=== PATIENT | female | born 1995 | race Caucasian/White ===

== ENCOUNTER 2019-03-20 03:55 | Observation (INO) ==
[2019-03-20] MEDS ORDERED: Ringers Solution, Lactated 1,000 ML ONE (04:14)
--- NOTE | 2019-03-20 06:59 | OB/GYN Progress Note ---
Date of Encounter: 03/20/19 Time of Encounter: 06:56 - Assessment and Plan (1) 37 weeks gestation of Current Visit: Yes Status: Acute Reactive NST No change with serial vaginal exams Discharge home with labor precautions Follow up in office and PRN POC per consult with Dr Beatty (2) NST (non-stress test) reactive Current Visit: Yes Status: Acute Subjective - Subjective Principal diagnosis: Labor Evaluation Interval history: Ms Dasilva is a at 37 weeks and 4 days that presents to triage with c/o contractions every 10 minutes and a lot of vaginal pressure after having intercourse this evening. She states they began at midnight last night. She has had a normal course and has been seen by the midwives. She states positive movement. She denies headaches, vision changes, epigastric pain, leaking of fluid, and vaginal bleeding. Antepartum ROS: movement normal, contractions Objective - Vital Signs Vital Signs: Intake and Output 03/19/19 03/19/19 03/20/19 15:59 23:59 07:59 Other: Weight 82.2 kg Patient Weight 03/20/19 23:59 Weight 82.2 kg - Exam FHR: auscultation normal, category 1 FHR comments: 130 baseline moderate variability with >15 x 15 accels and no decels No contractions at the time of discharge per toco, palpation, or patient report Auscultation: bilateral: normal Abdomen: Present: normal appearance, soft, gravid Uterus: Present: normal. Absent: firm Cervical dilation: 5-6 Cervix effacement: 80 station: 0
== END 2019-03-20 06:55 | disposition home or self-care (01) ==
LOC: 1NENULAB
PROVIDERS: ADMIT Advanced Practice Midwife; ATTEND Advanced Practice Midwife

== ENCOUNTER 2019-03-22 20:19 | Inpatient (IN) ==
[~2019-03-22 20:19] MED LIST: *HR* Nalbuphine 10 MG/ML AMPUL IVP PRN; Famotidine 20 MG/2 ML VIAL IVP PRN; Metoclopramide 10 MG/2 ML VIAL IVP PRN; Naloxone 0.4 MG/ML INJ IVP PRN; Ondansetron 4 MG/2 ML VIAL IVP PRN
[2019-03-22] MEDS ORDERED: Ringers Solution, Lactated 1,000 ML IVC SCH (20:30)
[2019-03-22 20:50] LABS: Basophils % 0.3 %; Eosinophils # 0.1 K/mcL (0.0-0.6); Hematocrit 36.9 % (35.3-44.9); Hemoglobin 12.7 g/dL (11.5-15.4); Immature Granulocytes % 0.9 % (0-4); Lymphocytes # 1.5 K/mcL (0.6-4.6); Mean Corpuscular HGB Conc 34.4 g/dL (31.6-35.5); Mean Corpuscular Hemoglobin 29.2 pg (28.0-33.3); Mean Corpuscular Volume 84.8 fL (83.0-100.0); Mean Platelet Volume 12.1 fL (9.4-12.4); Monocytes # 0.4 K/mcL (0.0-1.3); Monocytes % 5.7 %; Neutrophils # 4.9 K/mcL (1.6-8.9); Platelet Count 158 K/mcL (140-400); Red Blood Count 4.35 M/mcL (3.82-4.97); Red Cell Distribution Width 12.7 % (11.5-14.5); Segmented Neutrophils % 70.1 %
--- NOTE | 2019-03-22 20:57 | OB/GYN History & Physical ---
Date of Encounter: 03/22/19 Time of Encounter: 20:53 Assessment and Plan (1) 37 weeks gestation of Current visit: Yes Status: Acute Admit for spontaneous labor, 6 cm on arrival. NST Reactive augment labor as needed intermittent monitoring pain medication prn Anticipate (2) NST (non-stress test) reactive Current visit: Yes Status: Acute FHR 140 BPM, moderate variable +15x15 accels, no decels. category one tracing History of Present Illness Chief complaint: Labor HPI: Ms. Dasilva is a 23 year old female at 37,6 presenting with increased pelvic pressure [facility] She denies fluid gush, bloody show (did have some at 36 weeks and on 03/20) denies contractions (did have some on 03/20). She endorses movement. She denies UTI/STI during , denies tobacco, alcohol, or illicit drugs during the . She denies PreE and GestDia. GBS- Rubella Immune Hep B Non Reactive O+ Past Med Surg Social Fam HX - Past Medical History Attestation: Yes The following information was validated with the patient. Medical history: no medical history Psychiatric history: no psych history - Past Surgical History Surgical History: no surgical history - Social History Smoking Status: Never smoker Smokeless Tobacco Status: No Alcohol use: none Drug use: none - Family History Mother Family Member Ethnicity: Non- Living Status: Still Living Hx Family Cardiac Disorders: No Hx Family Respiratory Disorders: No Hx Family Cancer: No Hx Family GI Disorders: No Hx Family Endocrine Disorder: No Hx Family Neuromuscular Disorders: No Hx Family Neurologic Disorders: No Hx Family HEENT Disorders: No Hx Family Autoimmune Disorders: No Hx Family Reproductive Disorders: No Hx Family Psychosocial Disorders: No Hx Family Medical Disorders: No Obstetrical History - Pregnancies : 2 Para: 1 Term: 1 : 0 Ab's: 0 Livin Medications and Allergies Allergy/AdvReac Type Severity Reaction Status Date / Time No Known Allergies Allergy Verified 03/22/19 20:20 Review of System OB All systems PM: reviewed and no additional remarkable complaints except as stated - Constitutional Constitutional ROS IM: no chills, no fatigue, no fever(s), no headache(s), no malaise, no weakness - Cardiovascular Cardiovascular: no chest pain, no chest pain with activity, no dyspnea, no edema - Respiratory Respiratory: no cough, no dyspnea - Gastrointestinal Gastrointestinal: no abdominal pain, no change in bowel habits, no diarrhea, no nausea - Genitourinary Genitourinary: pelvic pain (Pressure ), no abnormal vaginal bleeding, no d ysuria, no hematuria, no urinary incontinence, no vaginal discharge - Psychiatric Psychiatric: no anhedonia, no anxiety, no depression, no irritability Exam - Constitutional Constitutional: well developed, well nourished, no acute distress, average body habitus - HEENT HEENT: Normocephaly, Mucus Membranes Moist - Neck Neck exam: full ROM, normal inspection - Lungs Respiratory exam: CTAB - Cardiovascular Cardiovascular exam: RRR, +S1, +S2 - Abdomen Abdomen: Present: gravid, non tender - Extremities Extremities exam: normal inspection, radial pulses palpable and symmetrical - Cervix Dilation: 6 (RN Exam) Effacement: 80 Station: -1 - Uterus Uterus exam: Present: normal size, normal contour Results Result Diagrams: 03/22/19 20:30 All other labs normal. - VTE Reasons for not Prescribing Prophylaxis: Treatment not Indicated - Low risk for VTE
--- NOTE | 2019-03-22 21:38 | OB Labor Progress Note ---
Date of Encounter: 03/22/19 Time of Encounter: 21:35 Labor Progress Note - Subjective Subjective: Patient on birthing ball, without complaint at this time. - Vital Signs Vital Signs: WNL - Cervix Cervix: 6/80/-1 - Heart Tones Heart Tones: FHR 140 bpm, moderate variability, +15x15 accels, no decels. - Gasquet Gasquet: Irregular - Interventions Interventions: SVE AROM for moderate amount of clear fluid. - Plan Plan: Intermittent monitoring Patient may ambulate for comfort Pain medication as patient desires Anticipate
--- NOTE | 2019-03-23 01:56 | OB Labor Progress Note ---
Date of Encounter: 03/23/19 Time of Encounter: 01:54 Labor Progress Note - Subjective Subjective: Patient coping well with contractions, at side for support. - Vital Signs Vital Signs: WNL - Cervix Cervix: 7/90/0 - Heart Tones Heart Tones: FHR 140 bpm, moderate variability, +15x15 accels, occasional variable/early decels. - [place]: 2-5 minutes - Interventions Interventions: SVE - Plan Physician notified: Yes Physician notified details: Dr. Arauz aware of admission, SVE, and AROM Plan: Increase Pitocin as needed Patient requesting epidural at this time Anticipate
[2019-03-23] MEDS ORDERED: *HR* FentaNYL (PF) 100 MCG/2 ML VIAL ONE (02:00)
[2019-03-23] MEDS ORDERED: Ropivacaine/PF 0.2% 20 ML VIAL ONE (02:01)
[2019-03-23] MEDS ORDERED: Epidural Premix (fent/bupiv) 110 ML EP ONE (02:02)
[2019-03-23] MEDS ORDERED: EPHEDrine 50 MG/ML VIAL IVP PRN (02:29)
--- NOTE | 2019-03-23 02:29 | Anesthesia Evaluation PreOp ---
Date of Encounter: 03/23/19 Time of Encounter: 02:25 - Past History Planned Operation: consuelo Cardiac History: Denies any Significant Hx Pulmonary History: Denies Any Significant HX HALL SUPERVISOR History: Denies Any Significant HX Other Medical History: Denies Any Significant HX Anesthesia History: No Prior Anesthetic Complications : Yes (38 weeks, ) Alcohol Use: none Drug use: none Medications and Allergies Allergy/AdvReac Type Severity Reaction Status Date / Time No Known Allergies Allergy Verified 03/22/19 20:20 - Meds/Allergy Pre-op Review Medications Reviewed: Yes Allergies Reviewed: Yes Beta Blockers on Current Med List: No Anesthesia Results - Labs 03/22/19 20:30 Anesthesia Exam O2 Sat Height 1.68 m Weight 82.735 kg Height: 66 Weight: 182 - HEENT Pupil (Motor): Pupils equal Mallampati: II Teeth: Normal Oral Opening: Greater than 3 - HALL SUPERVISOR LOC: Oriented HALL SUPERVISOR Motor: Normal RUE, Normal LUE, Normal RLE, Normal LLE, Normal Face HALL SUPERVISOR Sensory: Normal: RUE, LUE, RLE, LLE, Face - Cardiac Rhythm: Regular Murmur: None JVD: No Carotid Bruit: No - Pulmonary Breath Sounds: bilateral Clear Respiratory Effort: Symmetrical Anesthesia Assess/Plan ASA Score: 2 Level of consciousness: Cooperative Anesthetic Plan: Epidural Monitoring Plan: Standard Monitors
[2019-03-23] MEDS ORDERED: Epidural Premix (fent/bupiv) 110 ML EP SCH (02:30)
--- NOTE | 2019-03-23 02:34 | Anesthesia Procedures ---
Date of Encounter: 03/23/19 Time of Encounter: 02:03 (procedure end time 0235) Procedures: Anesthesia - Epidural/Spinal Patient ID/Chart reviewed: Yes Patient examined: Yes OB Eval: Gestational age: 38 OB Eval: : 2 OB Eval: Hx Para: 1 OB Eval: Dilated at (cm): 5 OB Eval: Contractions: Non-stressed pattern Consent Obtained: Yes Supplemental Oxygen: None/Room Air Site Prep: Aseptic Technique Patient position: upright Local Anesthetic: Lidocaine 1% Amount of Local Anesthetic used: 2 Touhy Needle Gauge: 18 Touhy Needle Depth (cm): 6 Catheter Depth at Skin (cm): 12 Test Dose (1.5% Lido + Epi): Volume given (mls): 3 Test Dose Result: Negative Loading Dose: Fentanyl (mcg): 100 Loading Dose: Other: 5cc 0.2% ropivicaine Loading Dose Administered: Thru Touhy Needle Infusion Med: 0.125% Bupivacaine w/ 2 mcg/ml Fentanyl Infusion Rate (mls/hr): [address]: Tegaderm Interspace Used: L4-L5 Loss of Resistance (ANJU): Yes Blood: No CSF: No Paresthesia: No Procedure: L4-5 aseptically x 1 attempt. Good ANJU, no parasthesias, no heme, no CSF. Catheter threaded to 12cm, gtt to 14cc/hr. FHR unchanged.
[2019-03-23] MEDS ORDERED: miSOPROStol 100 MCG TABLET PO ONE (04:40)
[2019-03-23] MEDS ORDERED: cefTRIAXone 1,000 MG in Water for inj. (sterile) 10 ML IVP ONE (05:32)
[2019-03-23] MEDS ORDERED: Clindamycin 900 MG/50 ML 900 MG/50 ML IV.SOLN IVPB ONE (05:32)
[2019-03-23] MEDS ORDERED: Lidocaine -MPF 2% 5 ML VIAL ONE (05:46)
[2019-03-23] MEDS ORDERED: *HR* Propofol 200 MG/20 ML VIAL IVP ONE (05:46)
[2019-03-23] MEDS ORDERED: *HR* Succinylcholine 200 MG/10 ML VIAL IVP ONE (05:46)
[2019-03-23] MEDS ORDERED: Dexamethasone 4 MG/ML VIAL ONE (06:03)
[2019-03-23] MEDS ORDERED: Ondansetron 4 MG/2 ML VIAL ONE (06:03)
[2019-03-23] MEDS ORDERED: *HR* Phenylephrine 10 MG/ML VIAL ONE (06:09)
--- NOTE | 2019-03-23 06:27 | OB/GYN Procedure Note ---
Delivery - Delivery Date: 03/23/19 Provider: Tiffanie Ritter Intrapartum events: none Delivery induction: none Delivery augmentation: rupture of membranes, pitocin Delivery monitor: external FHT, external uterine Anesthesia: epidural Quantitated Blood Loss: 150 - Infant (s) A Delivery Date: 03/23/19 Delivery Time: 04:12 Presentation: vertex Position: OA Route of delivery: Gender: Female Viability: Viable Weight Gram: 3315 kg at 1 minute: 8 at 5 mins: 9 Shoulder Dystocia: not encountered Specimens collected: cord blood Placenta: retained (Removal in OR per Dr. Arauz) Cord: 3 umbilical vessels - Repair Episiotomy: none Laceration Description: None - Complications Delivery complications: retained placenta Delivery comments: Called to room for delivery, complete and +2 station. Under maternal effort, spontaneous delivery of viable female over intact perineum. placed on maternal abdomen for drying and stimulation. Cord clamped and cut after pulsation ceased. No nuchal cord, shoulder dystocia, or meconium encountered. After 30 minutes, placenta had not delivered so PO Cytotec was given. Another 20 minutes later, the placenta still hadn't delivered so Dr. Arauz was notified and requested to come to bedside. Dr. Arauz to bedside to assist with placenta removal. Patient was initially comfortable with manual removal attempt but became very uncomfortable with further efforts. Discussed need to proceed to the OR for D&C due to retained placenta and patient is agreeable. Informed consent obtained by Dr. Arauz. Patient proceeded to OR with multiple staff members at bedside. Infant being held by father of baby. - Disposition Mom disposition: to OR disposition: stable in LDR
--- NOTE | 2019-03-23 06:38 | OB/GYN Procedure Note ---
OB-GRINDER MACHINE SETTER: Procedure - Diagnosis Date of procedure: 03/23/19 Pre-op diagnosis: Retained placenta with acute hemorrhage Post-op diagnosis: same - Procedure Procedure: Exam under anesthesia, dilation and curettage Surgeon: Andre Arauz Was there an stonecutter assistant present: No Anesthesia Type: General Estimated blood loss (cc): 500 (150 with delivery) Fluids: crystalloid Procedure Complications: None Specimens collected: placenta Disposition: PACU Findings: Retained placenta and no evidence of accreta Narrative: Patient's 23-year-old female status post spontaneous vaginal delivery certified nurse content specialist without incident. After delivery we did have retained placenta for approximately 1 hour and I was called to the room. On exam placenta was quite adherent high up in the left cornua anterior uterine wall. She had 28 week ultrasound which did not show evidence of placental implantation abnormality. Patient was very comfortable with epidural bleeding at this point was not very brisk and she lost approximately 10 mL of blood I did perform uterine fundal massage as well as gentle traction on the cord and remained quite adherent. I did perform an exam and attempted directly grasp the placenta and it remained quite adherent right did begin to have a small portion released. Continued to grasp the placenta and tried to deliver however she became more uncomfortable and the placenta remained quite adherent. Discussion was had and decision was made proceed to operating room for general anesthesia and uterine relaxation. Consent was obtained for exam under anesthesia, D&C, possible hysterectomy. Patient was taken operating room where timeout was performed she was prepped draped in usual sterile fashion bladder was drained of clear urine. In the operating room I was able to perform exam up to the uterine fundus was able to grasp the placenta was easily removed without difficulty. A massaged uterine cavity was free of residual tissue gentle sharp curettage was performed with banjo curette. Again exam revealed minimal residual tissue and the bleeding had slowed. This point total blood loss of been approximately 500 more cc and operating room with the 150 prior to going to the operating room. Of note prior to going to the operating room and to give Rocephin 1 g and clindamycin 900 mg. This point there was no further vigorous bleeding she was given additional Hemabate 400 g rectal suppository in addition to the 600 mg by mouth she had in the delivery room. She is also given Methergine 0.2 mg and uterus at this point was firm. This point all sponge and counts are correct patient was awakened taken recovery in good condition.
[2019-03-23] MEDS ORDERED: Methylergonovine 0.2 MG/ML AMPUL IM ONE (06:48)
[2019-03-23] MEDS ORDERED: miSOPROStol 100 MCG TABLET RC STA (06:52)
[2019-03-23] MEDS ORDERED: Oxytocin 20 units/ LR 1000 mL 20 UNIT/1,000 ML BAG IVC SCH ×2 (09:17)
[2019-03-23] MEDS ORDERED: Acetaminophen 325 MG TABLET PO PRN (09:17)
[2019-03-23 10:11] LABS: Basophils % 0.1 %; Eosinophils % 0.1 %; Hematocrit 34.1 % (35.3-44.9); Hemoglobin 11.8 g/dL (11.5-15.4); Immature Granulocytes % 0.5 % (0-4); Lymphocytes # 0.8 K/mcL (0.6-4.6); Lymphocytes % 5.5 %; Mean Corpuscular HGB Conc 34.6 g/dL (31.6-35.5); Mean Corpuscular Hemoglobin 29.4 pg (28.0-33.3); Mean Corpuscular Volume 84.8 fL (83.0-100.0); Mean Platelet Volume 11.9 fL (9.4-12.4); Monocytes # 0.4 K/mcL (0.0-1.3); Monocytes % 2.6 %; Neutrophils # 13.6 K/mcL (1.6-8.9); Platelet Count 135 K/mcL (140-400); Red Blood Count 4.02 M/mcL (3.82-4.97); Red Cell Distribution Width 12.4 % (11.5-14.5); Segmented Neutrophils % 91.2 %
[2019-03-23] MEDS: Ibuprofen 600 MG TABLET PO PRN ×2 (10:11→17:13)
[2019-03-23] MEDS: Prenatal Vit/FA 1 EACH TABLET PO SCH (10:11)
[2019-03-23 10:12] LABS: White Blood Count 14.9 K/mcL (4.3-11.1)
[2019-03-23] MEDS: *HR* HYDROcodone/Acet 5/325 mg TABLET PO PRN ×2 (14:46→21:01)
[2019-03-24] MEDS: Ibuprofen 600 MG TABLET PO PRN ×2 (02:18→08:06)
[2019-03-24 06:52] LABS: Basophils % 0.3 %; Eosinophils # 0.1 K/mcL (0.0-0.6); Eosinophils % 1.6 %; Hemoglobin 8.5 g/dL (11.5-15.4); Immature Granulocytes % 1.1 % (0-4); Lymphocytes # 1.8 K/mcL (0.6-4.6); Lymphocytes % 27.9 %; Mean Corpuscular HGB Conc 32.7 g/dL (31.6-35.5); Mean Corpuscular Hemoglobin 28.6 pg (28.0-33.3); Mean Corpuscular Volume 87.5 fL (83.0-100.0); Mean Platelet Volume 12.3 fL (9.4-12.4); Monocytes # 0.4 K/mcL (0.0-1.3); Monocytes % 5.7 %; Platelet Count 100 K/mcL (140-400); Red Blood Count 2.97 M/mcL (3.82-4.97); Red Cell Distribution Width 12.9 % (11.5-14.5); Segmented Neutrophils % 63.4 %; White Blood Count 6.3 K/mcL (4.3-11.1)
[2019-03-24] MEDS: Prenatal Vit/FA 1 EACH TABLET PO SCH (08:06)
[2019-03-24 09:00] VITALS: BP 115/80
[2019-03-24] MEDS: *HR* HYDROcodone/Acet 5/325 mg TABLET PO PRN (12:26)
--- NOTE | 2019-03-24 12:34 | Discharge Summary ---
Date of Encounter: 03/24/19 Time of Encounter: 12:30 - Discharge Diagnosis (1) Vaginal delivery Priority: Primary Status: Acute Comments: Patient meeting day one milestones. Pain well-controlled with prescribed medications. Patient declines ibuprofen prescription and states she will take [id number] medication from home. Voiding without difficulty, tolerating regular diet, bleeding light. No bowel movement yet. Anticipate discharge today (2) Breast feeding status of mother Priority: Secondary Status: Acute Comments: support as needed. Patient states she has a breast pump at home (3) Acute blood loss anemia Priority: Secondary Status: Acute Comments: Patient is asymptomatic with a hemoglobin of 8.5. She will be given a prescription for daily iron to take on discharge. - Discharge Medications Prescriptions: New Ferrous Sulfate 325 mg PO DAILY #30 tablet Acetaminophen [Tylenol] 650 mg PO Q6HR PRN tablet PRN Reason: Mild Pain Ibuprofen [Motrin] 600 mg PO Q6HR PRN tablet PRN Reason: Cramping Docusate [Colace] 100 mg PO BID capsule Home Medications: Acetaminophen [Tylenol] 650 mg PO Q6HR PRN tablet 03/24/19 [Rx] Docusate [Colace] 100 mg PO BID capsule 03/24/19 [Rx] Ferrous Sulfate 325 mg PO DAILY #30 tablet 03/24/19 [Rx] Ibuprofen [Motrin] 600 mg PO Q6HR PRN tablet 03/24/19 [Rx] Allergies/Adverse Reactions: Allergy/AdvReac Type Severity Reaction Status Date / Time No Known Allergies Allergy Verified 03/22/19 20:20 Data Procedures and tests throughout hospitalization: Laboratory Tests 03/22/19 03/23/19 03/24/19 20:30 10:01 06:01 WBC 7.0 14.9 H D 6.3 D RBC 4.35 4.02 2.97 L Hgb 12.7 11.8 8.5 L D Hct 36.9 34.1 L 26.0 L MCV 84.8 84.8 87.5 MCH 29.2 29.4 28.6 MCHC 34.4 34.6 32.7 RDW 12.7 12.4 12.9 Plt Count 158 135 L 100 L MPV 12.1 11.9 12.3 Immature Gran % 0.9 0.5 1.1 Seg Neutrophils % 70.1 91.2 63.4 Lymphocytes % 22.0 5.5 27.9 Monocytes % 5.7 2.6 5.7 Eosinophils % 1.0 0.1 1.6 Basophils % 0.3 0.1 0.3 Neutrophils # 4.9 13.6 H 4.0 Lymphocytes # 1.5 0.8 1.8 Monocytes # 0.4 0.4 0.4 Eosinophils # 0.1 0.0 0.1 Basophils # 0.0 0.0 0.0 Labs on day of discharge: Labs from last 24 hours 03/24/19 06:01 WBC 6.3 D RBC 2.97 L Hgb 8.5 L D Hct 26.0 L MCV 87.5 MCH 28.6 MCHC 32.7 RDW 12.9 Plt Count 100 L MPV 12.3 Immature Gran % 1.1 Seg Neutrophils % 63.4 Lymphocytes % 27.9 Monocytes % 5.7 Eosinophils % 1.6 Basophils % 0.3 Neutrophils # 4.0 Lymphocytes # 1.8 Monocytes # 0.4 Eosinophils # 0.1 Basophils # 0.0 Date of admission: 03/22/19 20:19 Primary care physician: PCP NONE Consults: 03/23/19 09:17 Consult to Poultry Hatchery Man [CONS] Routine Comment: Vaginal delivery, consult needed Discharging clinician: Tiffanie Ritter Anticipated date of discharge: 03/24/19 - Patient Status Disposition: Home, Self-Care Condition: Good Functional capacity at discharge: independent ambulation Overall status at discharge: patient is progressing back to baseline - Discharge Instructions Follow Up With: NONE,PCP [Primary Care Provider] - - Diet and Activity Activity: resume usual activities as tolerated Diet: regular diet Hospital Course Reason for admission: active labor Delivery: Episiotomy: none Laceration: none Other procedures: curettage (retained placenta) complications: retained placenta Discharge diagnosis: IUP at term delivered baby: female Hospital course: Delivery Date: 03/23/19 Provider: Tiffanie Ritter Intrapartum events: none Delivery induction: none Delivery augmentation: rupture of membranes, pitocin Delivery monitor: external FHT, external uterine Anesthesia: epidural Quantitated Blood Loss: 150 - Infant (s) Infant A Infant Delivery Date: 03/23/19 Infant Delivery Time: 04:12 Presentation: vertex Position: OA Route of delivery: Gender: Female Viability: Viable Weight Gram: 3315 kg at 1 minute: 8 at 5 mins: 9 Shoulder Dystocia: not encountered Specimens collected: cord blood Placenta: retained (Removal in OR per Dr. Arauz) Cord: 3 umbilical vessels - Repair Episiotomy: none Laceration Description: None - Complications Delivery complications: retained placenta Delivery comments: Called to room for delivery, complete and +2 station. Under maternal effort, spontaneous delivery of viable female over intact perineum. Infant placed on maternal abdomen for drying and stimulation. Cord clamped and cut after pulsation ceased. No nuchal cord, shoulder dystocia, or meconium encountered. After 30 minutes, placenta had not delivered so PO Cytotec was given. Another 20 minutes later, the placenta still hadn't delivered so Dr. Arauz was notified and requested to come to bedside. Dr. Arauz to bedside to assist with placenta removal. Patient was initially comfortable with manual removal attempt but became very uncomfortable with further efforts. Discussed need to proceed to the OR for D&C due to retained placenta and patient is agreeable. Informed consent obtained by Dr. Arauz. Patient proceeded to OR with multiple staff members at bedside. Infant being held by father of baby. - Disposition Mom disposition: to OR Rogers disposition: stable in LDR Time Attestation: Total time spent providing and/or coordinating discharge services: Time Spent: Less than 30 minutes Exam - Constitutional Vitals: Temp Pulse Resp BP Pulse Ox 97.6 F 77 16 115/80 98 03/24/19 07:30 03/24/19 07:30 03/24/19 07:30 03/24/19 07:30 03/24/19 02:00 General appearance IM: A&O X 3, pleasant, no acute distress, thin, answers questions appropriately - Respiratory Respiratory exam: Present: CTAB. Absent: respiratory distress - Cardiovascular Cardiovascular exam IM: Present: RRR, +S1, +S2. Absent: irregular rhythm - GI/Abdominal GI/Abdominal exam IM: normal bowel sounds, soft - Rectal Rectal exam: deferred - External exam: normal external exam Uterine Tone: Firm Uterus Position: At Umbilicus, Midline - Extremities Exam Extremities exam IM: Present: full ROM, normal capillary refill, normal inspection. Absent: calf tenderness - Neurological Exam Neurological exam: alert, normal gait, oriented X3
== END 2019-03-24 13:40 | disposition home or self-care (01) | DRG 797 ==
LOC: 1NENULAB → 1NENUOBS 03-23 09:06
PROVIDERS: ADMIT Registered Nurse; ATTEND Registered Nurse